=== PATIENT | male | born 1975 ===

== ENCOUNTER 2022-02-13 13:11 | Outpatient (CLI) | payer OTHER ==
--- NOTE | 2022-02-13 16:15 | Ultrasound Report ---
ULTRASOUND THYROID INDICATION / CLINICAL INFORMATION: RULE OUT ABNORMALITIES. Hypothyroidism COMPARISON: None available. FINDINGS: RIGHT LOBE: Size (cm) = 4.8 x 1.7 x 1.2 cm. LEFT LOBE: Size (cm) = 4.0 x 1.6 x 1.3 cm. ISTHMUS: Thickness (cm) = 0.4 cm. APPEARANCE: Normal. SMALL NODULES < 1 cm: None. NODULES >= 1 cm or SUSPICIOUS FEATURES (up to 4): None. LYMPH NODES: No abnormal lymph nodes. PARATHYROID GLANDS: No abnormal parathyroid glands. ADDITIONAL FINDINGS: None. IMPRESSION: 1. No suspicious thyroid nodules. 2. No additional abnormality. ACR TI-RADS Thyroid Nodule Recommendations TI-RADS 1 (0 pts) -- BENIGN. - No Fine Needle Aspirate biopsy (FNA) or follow-up. TI-RADS 2 (1-2 pts) -- NOT SUSPICIOUS. - No FNA or follow-up. TI-RADS 3 (3 pts) -- MILDLY SUSPICIOUS. - >= 2.5 cm: FNA. - 1.5-2.4 cm: Follow up at 1, 3, 5 years. - < 1.5 cm: No follow up. TI-RADS 4 (4-6 pts) -- MODERATELY SUSPICIOUS. - >= 1.5 cm: FNA. - 1.0-1.4 cm: Follow up at 1, 2, 3, 5 years. - < 1.0 cm: No follow up. TI-RADS 5 (7+ pts) -- HIGHLY SUSPICIOUS. - >= 1.0 cm: FNA. - 0.5-0.9 cm: Follow annually for 5 years. - 0.5 cm: No follow up. REFERENCE: ACR Thyroid Imaging, Reporting and Data System (TI-RADS): White Paper of the ACR TI-RADS C ommittee. J AM Arabella Radiol 2017;14:587-595. NOTE: Nodules < 1 cm do not typically require follow-up or FNA unless there are suspicious features. NOTE: Nodule size maximum dimension determines whether a given lesion should be biopsied or followed. NOTE: If multiple nodules meet criteria for FNA, only the two (2) most suspicious nodules should be b iopsied. In addition, FNA of any suspicious cervical nodes should be biopsied. NOTE: Predominantly Cystic nodules and Spongiform nodules, composed predominantly (>50%) of small cys tic spaces, are considered benign (TI-RADS 1) regardless of other criteria. Scribed by: Renetta Massey RDMS, CAPRIT, RIC Scribed: 02/13/2022 3:05 PM I have reviewed the images, agree with this report, and edited this report as needed. Signer Name: Hadley Caban MD Signed: 02/13/2022 4:11 PM Workstation Name: [id number]
== END 2022-02-13 13:12 | disposition home or self-care (01) ==
LOC: US 13:11
PROVIDERS: ATTEND Family Medicine
DX: E03.9 Hypothyroidism, unspecified (principal)
CPT/HCPCS: 76536